=== PATIENT | male | born 1945 | race Caucasian/White ===

== ENCOUNTER 2022-07-10 18:56 | Inpatient (IN) | payer MEDICARE ==
[~2022-07-10] VITALS: Ht 152.4 cm; Wt 76.2 kg
[~2022-07-10 18:56] MED LIST: CYAN100069 PO; LEVO250T74 MT; TAMS-11 MT; VITA-261 PO
[2022-07-10 20:45] LABS: CHLORIDE 109 mEq/L (98-107)
[2022-07-10 20:49] LABS: BASOPHILS % 0.4 % (0.0-2.0); HEMATOCRIT. 38.2 % (42.0-52.0); HEMOGLOBIN. 12.6 g/dL (14.0-18.0); LYMPHOCYTES % 7.8 % (20.0-50.0); MEAN CORPUSCULAR HEMOGLOBIN 30.1 pg (28.0-32.0); MEAN CORPUSCULAR VOLUME 91.2 fL (80.0-94.0); MEAN PLATELET VOLUME 8.7 fl (7.4-10.4); MONOCYTES % 6.9 % (2.0-8.0); NEUTROPHILS % 84.9 % (40.0-76.0); PLATELET 205 x1000/uL (130-400); RED BLOOD CELL COUNT 4.19 mill/uL (4.7-6.1); RED CELL DISTRIBUTION WIDTH 18.5 % (11.6-14.6)
[2022-07-10 21:00] LABS: ETHANOL BLOOD < 10 mg/dL
[2022-07-10] MEDS: ASPIRIN 325MG EC TABLET PO NR (21:27)
[2022-07-10] MEDS ORDERED: ONDANSETRON HCL 4MG/2ML INJ IV PRN (22:00)
[2022-07-10] MEDS: TAMSULOSIN HCL 0.4MG SR CAPSULE PO SCH (23:59)
[2022-07-11 01:03] VITALS: BP 129/83
[2022-07-11] MEDS: ACETAMINOPHEN 325MG TABLET PO PRN (01:23)
[2022-07-11 02:56] LABS: CREATINE KINASE MB FRACTION 2.5 ng/mL (0.5-3.6)
[2022-07-11 08:05] VITALS: BP 83/58
[2022-07-11 08:40] LABS: CREATINE KINASE MB FRACTION 2.1 ng/mL (0.5-3.6)
[2022-07-11 08:45] VITALS: BP 91/63
[2022-07-11] MEDS: TAMSULOSIN HCL 0.4MG SR CAPSULE PO SCH (09:00)
[2022-07-11 11:08] LABS: CLARITY URINE TURBID (CLEAR); COLOR URINE DARK YELLOW (YELLOW); KETONES URINE TRACE (NEGATIVE); LEUKOCYTE ESTERASE URINE 3+ (NEGATIVE); NITRITE URINE NEGATIVE (NEGATIVE); OCCULT BLOOD URINE 3+ (NEGATIVE); PH URINE 6.5 (4.5-8.0); PROTEIN URINE 3+ (NEGATIVE); SPECIFIC GRAVITY URINE 1.017 (1.005-1.030); UROBILINOGEN URINE 0.2 E.U./dL (0.2-1.0)
[2022-07-11 12:11] VITALS: BP 119/77
[2022-07-11] MEDS: SODIUM CHLORIDE 0.45% 1,000 ML IV SCH ×2 (12:17→21:11)
[2022-07-11] MEDS: PIPERACILLIN/TAZOBACTAM 3.375 G in DEXTROSE 5% WATER 50 ML IV SCH (12:23)
[2022-07-11 12:39] LABS: *AMPHETAMINES SCREEN URINE NEGATIVE (NEGATIVE); *BARBITURATES SCREEN URINE NEGATIVE (NEGATIVE); *BENZODIAZEPINES SCREEN URINE NEGATIVE (NEGATIVE); *COCAINE SCREEN URINE NEGATIVE (NEGATIVE); CANNABINOID URINE SCREEN NEGATIVE (NEGATIVE); METHADONE URINE SCREEN NEGATIVE (NEGATIVE); OPIATES URINE SCREEN NEGATIVE (NEGATIVE); PHENCYCLIDINE URINE SCREEN NEGATIVE (NEGATIVE)
[2022-07-11 15:47] VITALS: BP 112/71
[2022-07-11 16:44] LABS: HEMATOCRIT. 30.6 % (42.0-52.0); HEMOGLOBIN. 10.4 g/dL (14.0-18.0); MEAN CORPUSCULAR HEMOGLOBIN 31.2 pg (28.0-32.0); MEAN CORPUSCULAR VOLUME 91.6 fL (80.0-94.0); MEAN PLATELET VOLUME 8.7 fl (7.4-10.4); PLATELET 152 x1000/uL (130-400); RED BLOOD CELL COUNT 3.34 mill/uL (4.7-6.1); RED CELL DISTRIBUTION WIDTH 18.7 % (11.6-14.6)
[2022-07-11 17:00] LABS: CHLORIDE 109 mEq/L (98-107)
[2022-07-11 17:16] LABS: PLATELET ESTIMATE NORMAL
[2022-07-11 20:00] VITALS: BP 127/75
[2022-07-11] MEDS: ENOXAPARIN 30MG/0.3ML SYR SUBCUT SCH ×2 (21:11)
[2022-07-12] VITALS: BP 131/80
[2022-07-12] MEDS: PIPERACILLIN/TAZOBACTAM 3.375 G in DEXTROSE 5% WATER 50 ML IV SCH ×2 (00:25→12:33)
[2022-07-12 04:00] VITALS: BP 104/74
[2022-07-12 08:00] VITALS: BP 130/85
[2022-07-12] MEDS: ASPIRIN 81MG EC TABLET PO SCH (09:23)
[2022-07-12] MEDS: TAMSULOSIN HCL 0.4MG SR CAPSULE PO SCH (09:23)
[2022-07-12] MEDS: SODIUM CHLORIDE 0.45% 1,000 ML IV SCH ×2 (09:24→17:21)
[2022-07-12 12:00] VITALS: BP 133/78
[2022-07-12] MEDS ORDERED: ENOXAPARIN 40MG/0.4ML SYR SUBCUT NR (13:00)
[2022-07-12] MEDS: ACETAMINOPHEN 325MG TABLET PO PRN (14:49)
[2022-07-12 15:50] LABS: INR 1.1; PROTHROMBIN TIME 11.5 sec (9.6-11.0)
[2022-07-12 20:00] VITALS: BP 131/66
[2022-07-13] VITALS: BP 108/63
[2022-07-13] MEDS: SODIUM CHLORIDE 0.45% 1,000 ML IV SCH ×3 (01:47→20:54)
[2022-07-13] MEDS: PIPERACILLIN/TAZOBACTAM 3.375 G in DEXTROSE 5% WATER 50 ML IV SCH ×3 (01:47→23:16)
[2022-07-13 04:00] VITALS: BP 126/75
[2022-07-13 08:00] VITALS: BP 112/75
[2022-07-13 09:08] LABS: HEMATOCRIT. 25.7 % (42.0-52.0); HEMOGLOBIN. 8.6 g/dL (14.0-18.0); MEAN CORPUSCULAR HEMOGLOBIN 30.6 pg (28.0-32.0); MEAN CORPUSCULAR VOLUME 91.6 fL (80.0-94.0); MEAN PLATELET VOLUME 9.3 fl (7.4-10.4); PLATELET 104 x1000/uL (130-400); RED BLOOD CELL COUNT 2.81 mill/uL (4.7-6.1); RED CELL DISTRIBUTION WIDTH 18.3 % (11.6-14.6)
[2022-07-13 09:43] LABS: PLATELET ESTIMATE DECREASED
[2022-07-13] MEDS: TAMSULOSIN HCL 0.4MG SR CAPSULE PO SCH (09:49)
[2022-07-13] MEDS: ASPIRIN 81MG EC TABLET PO SCH (09:49)
[2022-07-13 12:00] VITALS: BP 109/73
[2022-07-13] MEDS ORDERED: POTASSIUM CHLORIDE 20MEQ TABLET SR PO NR (12:30)
[2022-07-13] MEDS ORDERED: MAGNESIUM 2 G PREMIX 50 ML IV NR (13:30)
[2022-07-13 16:00] VITALS: BP 99/58
[2022-07-13] MEDS ORDERED: ENOXAPARIN 80MG/0.8ML SYR SUBCUT SCH (18:00)
[2022-07-13 20:00] VITALS: BP 106/63
[2022-07-14] VITALS: BP 138/78
[2022-07-14 04:00] VITALS: BP 100/67
[2022-07-14 07:26] LABS: HEMATOCRIT. 30.6 % (42.0-52.0); HEMOGLOBIN. 10.4 g/dL (14.0-18.0); MEAN CORPUSCULAR HEMOGLOBIN 31.5 pg (28.0-32.0); MEAN CORPUSCULAR VOLUME 92.4 fL (80.0-94.0); RED BLOOD CELL COUNT 3.31 mill/uL (4.7-6.1); RED CELL DISTRIBUTION WIDTH 18.4 % (11.6-14.6)
[2022-07-14 08:01] LABS: CHLORIDE 107 mEq/L (98-107)
[2022-07-14 08:04] VITALS: BP 113/65
[2022-07-14 08:18] LABS: PLATELET 123 x1000/uL (130-400)
[2022-07-14 08:24] LABS: PLATELET ESTIMATE SLIGHTLY DECREASED
[2022-07-14] MEDS: ASPIRIN 81MG EC TABLET PO SCH (09:09)
[2022-07-14] MEDS: TAMSULOSIN HCL 0.4MG SR CAPSULE PO SCH (09:12)
[2022-07-14] MEDS: SODIUM CHLORIDE 0.45% 1,000 ML IV SCH ×2 (09:13→20:45)
[2022-07-14 11:44] VITALS: BP 130/79
[2022-07-14] MEDS: PIPERACILLIN/TAZOBACTAM 3.375 G in DEXTROSE 5% WATER 50 ML IV SCH ×2 (11:57→23:49)
[2022-07-14 15:49] VITALS: BP 112/70
[2022-07-14 20:00] VITALS: BP 140/70
[2022-07-15 00:05] VITALS: BP 140/70
[2022-07-15 04:00] VITALS: BP 139/67
[2022-07-15] MEDS: SODIUM CHLORIDE 0.45% 1,000 ML IV SCH ×2 (05:40→15:25)
[2022-07-15 06:13] LABS: MEAN CORPUSCULAR HEMOGLOBIN 30.6 pg (28.0-32.0); MEAN CORPUSCULAR VOLUME 91.5 fL (80.0-94.0); MEAN PLATELET VOLUME 9.1 fl (7.4-10.4); PLATELET 117 x1000/uL (130-400); RED BLOOD CELL COUNT 2.95 mill/uL (4.7-6.1); RED CELL DISTRIBUTION WIDTH 18.7 % (11.6-14.6)
[2022-07-15 08:04] VITALS: BP 141/73
[2022-07-15] MEDS: TAMSULOSIN HCL 0.4MG SR CAPSULE PO SCH (08:56)
[2022-07-15] MEDS: ASPIRIN 81MG EC TABLET PO SCH (08:56)
[2022-07-15 11:52] VITALS: BP 137/74
[2022-07-15] MEDS ORDERED: LIDOCAINE HCL 1% 10 MG/ML 10ML VIAL ONE (12:37)
[2022-07-15] MEDS ORDERED: POTASSIUM CHLORIDE 20MEQ TABLET SR PO NR (13:15)
[2022-07-15 13:30] LABS: PLATELET ESTIMATE SLIGHTLY DECREASED
[2022-07-15] MEDS: CEFTRIAXONE 1GM PREMIX 50 ML IV SCH (15:41)
[2022-07-15 15:58] VITALS: BP 142/78
[2022-07-15 20:00] VITALS: BP 119/66
[2022-07-16] VITALS: BP 140/68
[2022-07-16] MEDS: SODIUM CHLORIDE 0.45% 1,000 ML IV SCH (01:00)
[2022-07-16 04:00] VITALS: BP 146/72
[2022-07-16 08:27] VITALS: BP 124/61
[2022-07-16] MEDS ORDERED: TETRACAINE/BENZOCAINE/BUTAMBEN 20 GM SPRAY MM ONE (10:40)
[2022-07-16] MEDS ORDERED: LIDOCAINE 2% 6ML GLYDO MM ONE (10:40)
[2022-07-16] MEDS ORDERED: DIPHENHYDRAMINE 50MG/ML VIAL ONE (11:00)
[2022-07-16] MEDS ORDERED: FENTANYL CITRATE/PF 50MCG/ML 2ML VIAL ONE (11:00)
[2022-07-16] MEDS ORDERED: MIDAZOLAM HCL 2 MG/2 ML VIAL ONE (11:00)
[2022-07-16] MEDS: ASPIRIN 81MG EC TABLET PO SCH (14:54)
[2022-07-16] MEDS: TAMSULOSIN HCL 0.4MG SR CAPSULE PO SCH (14:55)
[2022-07-16] MEDS: CEFTRIAXONE 1GM PREMIX 50 ML IV SCH (14:55)
[2022-07-16 16:00] VITALS: BP 109/64
[2022-07-16 18:20] VITALS: BP 115/62
[2022-07-16 20:00] VITALS: BP 134/55
== END 2022-07-16 21:05 | DRG 871 ==
LOC: ER 18:56 → EDBEDREQSVC 21:16 → EDBEDREQTM 21:16 → ENRESERV 21:47 → 7WST 07-11 00:57
PROVIDERS: ADMIT Internal Medicine; ATTEND Internal Medicine
PROC: 02HV33Z Insertion of Infusion Device into Superior Vena Cava, Percutaneous Approach (ICD-10-PCS; principal; 2022-07-15)
PROC: B5181ZA Fluoroscopy of Superior Vena Cava using Low Osmolar Contrast, Guidance (ICD-10-PCS; 2022-07-15)
PROC: B548ZZA Ultrasonography of Superior Vena Cava, Guidance (ICD-10-PCS; 2022-07-15)
DX: A41.59 Other Gram-negative sepsis (principal); N17.0 Acute kidney failure with tubular necrosis; N13.6 Pyonephrosis; D63.1 Anemia in chronic kidney disease; E78.5 Hyperlipidemia, unspecified; D69.6 Thrombocytopenia, unspecified; E83.42 Hypomagnesemia; I48.0 Paroxysmal atrial fibrillation; I12.9 Hypertensive chronic kidney disease with stage 1 through stage 4 chronic kidney disease, or unspecified chronic kidney disease; N18.9 Chronic kidney disease, unspecified; N13.9 Obstructive and reflux uropathy, unspecified; N30.90 Cystitis, unspecified without hematuria; N40.0 Benign prostatic hyperplasia without lower urinary tract symptoms; Z95.0 Presence of cardiac pacemaker; Z95.2 Presence of prosthetic heart valve
CPT/HCPCS: 36415; 36573; 71045; 76770; 80048; 80053; 80305; 80320; 81003; 82550; 82553; 82962; 83735; 83880; 84145; 84153; 84484; 85025; 87077; 87186; 93005; 93306; 93312; 97162; 99285; C1725; C1769; J0696; J1200; J1650; J2250; J2543; J3010; J3475; J3490; J7060; G0103; G0480